=== PATIENT | female | born 1970 | race Caucasian/White ===

== ENCOUNTER → 2023-12-04 | Outpatient (CLI) | payer BC ==
--- NOTE | 2023-12-06 12:20 | MR ---
EXAMINATION TYPE: MR knee RT wo con DATE OF EXAM: 12/04/2023 COMPARISON: Outside right knee x-ray November 29, 2023 HISTORY: Right knee medial pain, swelling and locks x1 month after tripping injury TECHNIQUE: Multiplanar, multisequence images of the knee is performed without IV contrast. FINDINGS: MEDIAL MENISCUS: Oblique and irregular signal posterior horn extending to inferior articular surface. LATERAL MENISCUS: Anterior and posterior horns are intact without tear. CRUCIATE LIGAMENTS: The anterior and posterior cruciate ligaments are intact and unremarkable. COLLATERAL LIGAMENTS: The medial collateral ligament and lateral collateral ligament complex are inta ct. Abnormal fluid surrounds the medial collateral ligament.. EXTENSOR MECHANISM: Visualized quadriceps and patellar tendons are intact. EFFUSION: Small to moderate size suprapatellar joint effusion. POPLITEAL CYST: Small size popliteal/palm cyst with surrounding ill-defined fluid most prominent ext ending superiorly. TRICOMPARTMENT SPACES: Mild to moderate tricompartment joint space loss and mild spurring. CARTILAGE: Chondromalacia patella with full-thickness cartilaginous loss along the posterior patellar pole. BONE MARROW SIGNAL: Horizontal Linear diminished T1 signal in the medial tibial plateau with surround ing increased T2 signal. No bony fragmentation. OTHER: No additional significant abnormality is appreciated. IMPRESSION: 1. There is subchondral radio-occult fracture through the medial tibial plateau with surrounding osse ous contusion injury. 2. Full-thickness tear posterior horn medial meniscus. 3. Moderate MCL sprain injury. 4. Small to moderate-sized suprapatellar joint effusion. 5. Small to moderate-sized leaking popliteal cyst. 6. Fairly moderate tricompartment degenerative changes most prominent patellofemoral compartment as d etailed above.
== END | disposition home or self-care (01) ==
LOC: RADMRIMAIN 20:15
PROVIDERS: ATTEND Orthopaedic Surgery
DX: M17.11 Unilateral primary osteoarthritis, right knee (principal); M71.21 Synovial cyst of popliteal space [Baker], right knee; S83.241A Other tear of medial meniscus, current injury, right knee, initial encounter; M25.461 Effusion, right knee; S83.411A Sprain of medial collateral ligament of right knee, initial encounter; S82.131A Displaced fracture of medial condyle of right tibia, initial encounter for closed fracture; W01.0XXA Fall on same level from slipping, tripping and stumbling without subsequent striking against object, initial encounter

== ENCOUNTER → 2023-12-27 | Outpatient (CLI) | payer BC ==
[2023-12-27 16:30] LABS: HGB 13.6 g/dL (12.0-15.0); MCH 30.1 pg (27.0-32.0); MCHC 32.4 g/dL (32.0-37.0); MCV 92.9 FL (80.0-97.0); Mean Platelet Volume 9.8 FL (9.5-12.2); NRBC Per 100 WBC 0 X 10*3/uL (0.00-0.01); Platelet Count 338 X 10*3/uL (140-440); RBC 4.52 X 10*6/uL (4.10-5.20); RDW 13.7 % (11.5-14.5); WBC 6.95 X 10*3/uL (4.50-10.00)
[2023-12-27 16:31] LABS: Basophils # (A) 0.06 X 10*3/uL (0.00-0.10); Basophils % (A) 0.9 %; Eosinophils # (A) 0.26 X 10*3/uL (0.04-0.35); Eosinophils % (A) 3.7 %; Lymphocytes % (A) 24.5 %; Monocytes # (A) 0.53 X 10*3/uL (0.20-1.00); Monocytes % (A) 7.6 %; Neutrophils # (A) 4.36 X 10*3/uL (1.80-7.70); Neutrophils % (A) 62.7 %
[2023-12-27 17:12] LABS: Anion Gap 14.6 mmol/L (4.00-12.00); Carbon Dioxide 20.4 mmol/L (21.6-31.8); Potassium 4.7 mmol/L (3.5-5.5)
== END | disposition home or self-care (01) ==
LOC: LABPAT 10:27
PROVIDERS: ATTEND Orthopaedic Surgery
DX: Z01.818 Encounter for other preprocedural examination (principal); M23.91 Unspecified internal derangement of right knee; R94.31 Abnormal electrocardiogram [ECG] [EKG]
CPT/HCPCS: 36415; 80051; 85025; 93005

== ENCOUNTER 2024-01-10 08:23 | Day surgery (SDC) | payer BC ==
[2024-01-08 14:53] VITALS: BMI 31.8
--- NOTE | 2024-01-10 06:25 | HP ---
HISTORY AND PHYSICAL DATE OF SCHEDULED SURGERY: 01/10/2024. HISTORY OF PRESENT ILLNESS: Ky Fragoso is a 53-year-old lady seen with progressive right knee pain. We discussed options regarding treatment. She elected to proceed with right knee arthroscopy. Consent regarding procedure obtained. PAST MEDICAL HISTORY: Noncontributory. SURGICAL HISTORY: Noncontributory. DAILY MEDICATIONS: Aleve and Tylenol. SOCIAL HISTORY: She denies tobacco use. PHYSICAL EVALUATION OF THE RIGHT KNEE: Range of motion is 0 to 130 degrees. Mild effusion. Tenderness, medial joint line. Positive medial Devi's. Ligaments stable. Hip rotation without pain. Distal neurovascular exam is intact. IMAGING STUDIES: Right knee radiographs revealed mild osteoarthritis MRI right knee revealed medial meniscal tear. Moderate effusion. Popliteal cyst. Moderate osteoarthritis. IMPRESSION: Internal derangement of right knee with medial meniscal tear. PLAN: Right knee arthroscopy with partial medial meniscectomy and debridement. MMODL / IJN: [id number] /
[2024-01-10 09:13] VITALS: RESP 16
[2024-01-10] MEDS ORDERED: MIDAZOLAM 2 MG/2 ML VIAL IV PRN (09:14)
[2024-01-10] MEDS ORDERED: fentaNYL (PF) 50 MCG/ML 2 ML AMP IVP PRN (09:14)
[2024-01-10] MEDS: IV FLUID CONTINUATION 1,000 ML IV ONE ×2 (09:21→10:55)
[2024-01-10] MEDS ORDERED: fentaNYL (PF) 50 MCG/ML 2 ML AMP ONE (09:22)
[2024-01-10] MEDS ORDERED: PROPOFOL 10 MG/ML 20 ML VIAL IV ONE (09:22)
[2024-01-10] MEDS ORDERED: LIDOCAINE 1% INJ 10MG/ML (20 ML MDV) ONE (09:22)
[2024-01-10] MEDS: DEXAMETHASONE SOD PHOSPHATE 4 MG/ML 1 ML VIAL IV ONE (09:22)
[2024-01-10] MEDS: LACTATED RINGERS 1,000 ML IV SCH (09:22)
[2024-01-10] MEDS ORDERED: KETOROLAC 15 MG/ML 1 ML VIAL ONE (09:22)
[2024-01-10] MEDS: ONDANSETRON 4 MG/2 ML VIAL IVP ONE (09:22)
[2024-01-10] MEDS ORDERED: MIDAZOLAM 2 MG/2 ML VIAL ONE (09:22)
[2024-01-10] MEDS: LIDOCAINE 1% (10MG/ML) FOR IV START INTRADERMA PRN (09:22)
[2024-01-10] MEDS: BUPIVACAINE (PF) 0.25% 30 ML VIAL SQ ONE ×2 (09:41→09:57)
[2024-01-10 10:10] VITALS: TEMP 96.8
--- NOTE | 2024-01-10 10:11 | P.OP ---
Date of Procedure: 01/10/24 Preoperative Diagnosis: Internal derangement right knee Postoperative Diagnosis: 1. Tear medial and lateral meniscus right knee 2. Grade IV chondromalacia medial femoral condyle right knee 3. Reactive synovitis medial, lateral and suprapatellar compartments right knee 4. Grade IV chondromalacia patella right knee Procedure(s) Performed: 1. Arthroscopic partial medial and lateral meniscectomy right knee 2. Arthroscopic microfracture medial femoral condyle right knee 3. Arthroscopic partial synovectomy medial, lateral and suprapatellar compartments right knee 4. Arthroscopic chondroplasty patella right knee Anesthesia: GETA, local Surgeon: Michele Posada ( [facility]) Estimated Blood Loss (ml): 6 Pathology: none sent Condition: stable Disposition: PACU Indications for Procedure: 53-year-old patient seen with progressive right knee pain. After treatment options were discussed, she elected to proceed with arthroscopy. Operative Findings: See description of procedure Description of Procedure: Patient was taken to the operative suite. Patient underwent a general anesthetic by the department of anesthesia. Patient was given preoperative antibiotics. The right lower extremity was placed in a well-padded arthroscopic leg shetty. The right leg was prepped and draped in the normal sterile orthopedic fashion. A lateral parapatellar and suprapatellar incision was made. Trochars were inserted. Arthroscopy was initiated. Suprapatellar pouch revealed diffuse thick reactive synovitis. The patellofemoral joint appeared to articular congruently. There was grade III/IV chondromalacia changes of the patella and grade III chondromalacia changes of the femoral sulcus. There were some osteochondral tears involving the patella.. The scope was guided into the medial gutter. No loose bodies or plica were identified. The scope was then guided into the medial compartment. A medial parapatellar incision was made. Trocar inserted followed by probe. There was a complex tear involving the posterior horn of the medial meniscus near the root. There were grade III/IV chondromalacia changes of the medial femoral condyle with osteochondral flap tears present. There were grade II chondromalacia changes of the tibial plateau. There was thick reactive synovitis anteriorly. I performed a partial medial meniscectomy getting down to stable meniscal tissue. I performed a chondroplasty of the medial femoral condyle getting down to stable osteochondral tissue. I performed a partial synovectomy decompressing the thick reactive synovitis anteriorly. I did note an area of exposed bone on the medial femoral condyle measuring about a centimeter. I introduced a microfracture awl and I performed microfracture to that area penetrating the bone with resultant bleeding at the microfracture site. The residual meniscus was probed and was found to be stable. The residual osteochondral surface of the medial femoral condyle was stable. There was good decompression of the synovitis. Scope and probe were then guided into the intercondylar notch. Cruciates were identified, probed and found to be stable. The scope and probe were then guided into lateral compartment. There was a radial tear mid body lateral meniscus. There were grade I chondromalacia changes of the lateral compartment without tears. There was some thick reactive synovitis anteriorly. I performed a partial lateral meniscectomy getting down to stable meniscal tissue. I performed a partial synovectomy decompressing the reactive synovitis. The residual meniscus was stable. There was good decompression of the synovitis. The scope was in guided back into the suprapatellar compartment. I used a motorized shaver into the suprapatellar compartment. I debrided some piecemeal fragments of meniscus I encountered. I performed a chondroplasty of the patella getting down to stable osteochondral tissue. I performed a partial synovectomy decompressing the reactive synovitis. There was good decompression of the synovitis. The residual osteochondral surface of the patella appeared stable. There was near grade IV chondromalacia present. I now took 1 more look around the entire knee, no residual debris. Instruments were now removed from the joint. The joint was infiltrated with .25% Marcaine. Steri-Strips were applied to the portal sites. Sterile dressings were applied. The patient was placed into a ADILIA hose. No tourniquet was utilized. The patient was awakened, transferred to a bed and taken to recovery stable satisfactory condition.
[2024-01-10] MEDS: HYDROmorphone 0.5 MG/0.5 ML SYRINGE IVP PRN (10:21)
[2024-01-10 11:34] VITALS: BP 152/86; PULSE 59
== END 2024-01-10 12:05 | disposition home or self-care (01) ==
LOC: OR 08:23
PROVIDERS: ATTEND Orthopaedic Surgery
DX: S83.281A Other tear of lateral meniscus, current injury, right knee, initial encounter (principal); M22.41 Chondromalacia patellae, right knee; S83.241A Other tear of medial meniscus, current injury, right knee, initial encounter; M65.161 Other infective (teno)synovitis, right knee; X58.XXXA Exposure to other specified factors, initial encounter
CPT/HCPCS: 29879; 29880; J2250; J1100; J0690; J2405; J2001; J3010; J1885; J2704; J1170; J0665